=== PATIENT | male | born 1945 | race Caucasian/White ===

== ENCOUNTER 2016-09-30 07:54 | Day surgery (SDC) | payer OTHER ==
[2016-09-30] MEDS ORDERED: Morphine INJ* 4 MG/ML 1 ML SYRINGE IV ONE ×2 (08:25→09:24)
[2016-09-30] MEDS ORDERED: Ondansetron INJ* 2 MG/ML VIAL IV ONE (08:25)
[2016-09-30] MEDS ORDERED: NS 0.9% 1000 ML* 1,000 ML IV SCH (08:45)
[2016-09-30] MEDS ORDERED: Buffered Lidocaine 0.9% SYRIN* 5 ML/SYR SYRINGE INTRADERM ONE (10:04)
[2016-09-30] MEDS ORDERED: Famotidine IV* 10 MG/ML 2 ML (20 mg) IV ONE (10:04)
[2016-09-30] MEDS ORDERED: Morphine INJ* 2 MG/ML 1 ML SYRINGE IV PRN (10:05)
[2016-09-30] MEDS ORDERED: fentaNYL* 50 MCG/ML 2 ML VIAL (100 MCG VIAL) IV PRN (10:05)
[2016-09-30] MEDS ORDERED: oxyCODONE/Acetamin 5/325 MG* TAB PO PRN (10:05)
[2016-09-30] MEDS ORDERED: PROCHLORPERAZINE INJ 5 MG/ML 2 ML VIAL IV PRN (10:05)
--- NOTE | 2016-09-30 10:21 | HP ---
CC: Dr. Arnold Kennedy * DATE OF ADMISSION: 09/30/16 CHIEF COMPLAINT: Abdominal pain. HISTORY OF PRESENT ILLNESS: The patient is a 71-year-old male transferred over from [facility]. He was ambulatory to the ER with about 6 hours of generalized abdominal pain with some dry heaves. He did not throw up at all , but he felt like maybe he needed to. The pain was sort of generalized. He has a hard time pinpointing exactly where it is. He's had no fever, no chills. No accident, injury or trauma. PAST MEDICAL HISTORY: Significant for right inguinal hernia repair 40 years ago or more. He also has known polycystic kidney disease. He still urinates normally. MEDICATIONS: He denies regular medication. ALLERGIES: He denies allergy to medications. FAMILY HISTORY: Benign. There are no bleeding tendencies or anesthesia reactions. SOCIAL HISTORY: He's approximately a pack-a-day smoker. He's not an alcohol drinker. 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 He has no trouble going up and down stairs or up and down ladders. He does not tend to get winded. He is here with his today. REVIEW OF SYSTEMS: A multi-system review is benign. No chest pain, heart pain , angina pain or the like. No chronic bronchitis, emphysema, or chronic cough or congestion. No recent upper respiratory infection. He has no chronic GI history, and no urinary symptoms. He has no neuromuscular or psych issues. He' s never had easy bleeding or clotting problems. PHYSICAL EXAMINATION GENERAL: On exam, he's a well-developed, well-nourished male, consistent with stated age. Skin is warm and well perfused. He's not diaphoretic; he's not jaundiced. VITAL SIGNS: Please see the admission vital signs in the computer. HEAD AND NECK: Unremarkable. Neck without any adenopathy. LUNGS: Clear bilaterally without adequate aeration. HEART: Regular without abnormal sounds. He's reported from the [facility] to have a grade I diastolic murmur; I don't appreciate that at all. ABDOMINAL EXAM: Soft, mild diffuse tenderness, no rebound, no guarding. He has a tender palpable right inguinal hernia which is actually quite tender and not reducible. EXTREMITIES: Well perfused and without edema. LABORATORY STUDIES: Show normal electrolytes, normal CBC. CT scan shows evidence of bowel obstruction with a right inguinal hernia. The official report from [facility] is that there are bilateral inguinal hernias, but I do not palpate a left inguinal hernia on exam, nor do I believe there's truly a left inguinal hernia on the CT scan. I've gone over these images with Dr. Quintero who concurs. IMPRESSION: A 71-year-old male with incarcerated right inguinal hernia with recurrence and with bowel obstruction. I discussed this with him and his , and I recommend repair of his right inguinal hernia with mesh to relieve his bowel obstruction. They understand that if there is gangrene of the bowel, that it is possible that he will need a bowel resection. It is also possible that he will need conversion to laparotomy. We've gone over all these issues. All their questions have been answered, and they agree to proceed in the fashion outlined. [id number]/[facility] #: [id number] MTDD
[2016-09-30] MEDS ORDERED: Famotidine IV* 10 MG/ML 2 ML (20 mg) ONE (10:25)
[2016-09-30] MEDS ORDERED: Morphine INJ* 10 MG/ML 1 ML SYRINGE ONE (10:48)
[2016-09-30] MEDS ORDERED: PROCHLORPERAZINE INJ 5 MG/ML 2 ML VIAL ONE (10:48)
[2016-09-30] MEDS ORDERED: ceFAZolin 2 GM PREMIX(*) 2 GM/50 ML BAG IVPB ONE ×2 (11:49→11:52)
[2016-09-30] MEDS ORDERED: fentaNYL* 50 MCG/ML 2 ML VIAL (100 MCG VIAL) ONE (11:50)
[2016-09-30] MEDS ORDERED: KETAMINE HCL* 50 MG/ML 10 ML VIAL ONE (11:50)
[2016-09-30] MEDS ORDERED: Midazolam* 1 MG/ML 2 ML VIAL (2 MG) ONE (11:51)
[2016-09-30] MEDS ORDERED: Bupivacaine 0.5% W/EPI SDV* 10 ML VIAL INJ ONE ×2 (11:56→11:57)
[2016-09-30] MEDS ORDERED: Lidocaine 1% INJ* 10 MG/ML 30 ML SDV ONE (11:57)
[2016-09-30] MEDS ORDERED: Lidocaine 2% PF * 5 ML VIAL ONE (12:33)
[2016-09-30] MEDS ORDERED: Propofol* 10 MG/ML 20 ML BTL IV PUSH ONE (12:33)
[2016-09-30] MEDS ORDERED: Dexamethasone IV* 4 MG/ML 1 ML (4 MG) ONE (12:33)
[2016-09-30] MEDS ORDERED: Glycopyrrolate IV* 0.2 MG/ML 1 ML VIAL ONE (12:33)
[2016-09-30] MEDS ORDERED: Neostigmine Methylsulfate* 2 MG/2 ML SYRINGE ONE (12:33)
[2016-09-30] MEDS ORDERED: Ondansetron INJ* 2 MG/ML VIAL ONE (12:33)
[2016-09-30] MEDS ORDERED: EPHEDrine (Pressors)* 50 MG/ML VIAL ONE (12:59)
[2016-09-30 15:23] VITALS: BP 129/70
--- NOTE | 2016-09-30 15:49 | ED ---
Adriane Vizcaino Edward, scribed for Isael Ma MD on 09/30/16 at 0835 . Abdominal Pain/Male - HPI Summary HPI Summary: 71 y/o male presents to ED c/o diffuse ABD pain. Pain started at 21:00 last night and was rated at a 7/10 on arrival. Denies pain in testicles. PMHx groin strain, chronic back problems. SHx hernia repair in 1995. - History of Current Complaint Chief Complaint: EDAbdPain Stated Complaint: ABD PAIN Time Seen by Provider: 09/30/16 08:24 Hx Obtained From: Patient Onset/Duration: Lasting Hours - Since 21:00 yesterday, Still Present Timing: Constant Severity Initially: Moderate Severity Currently: Moderate Pain Intensity: 7 Pain Scale Used: 0-10 Numeric Location: Diffuse - Diffuse abdominal pain - Allergies/Home Medications Allergies/Adverse Reactions: Allergies Allergy/AdvReac Type Severity Reaction Status Date / Time No Known Allergies Allergy Verified 09/30/16 08:06 PMH/Surg Hx/FS Hx/Imm Hx Previously Healthy: Yes Musculoskeletal History: Reports: Other Musculoskeletal History - Groin strain, chronic back problems - Surgical History Surgery Procedure, Year, and Place: Hernia repair (1995) Infectious Disease History: No Infectious Disease History: Denies: Traveled Outside the [place] in Last 30 Days - Family History Known Family History: Positive: Cardiac Disease - Father of CHF at 83, Diabetes - Son - Social History Alcohol Use: None Substance Use Type: Reports: Prescribed Substance Use Comment - Amount & Last Used: for back pain Smoking Status (MU): Heavy Every Day Tobacco Smoker Review of Systems Constitutional: Negative Eyes: Negative ENT: Negative Cardiovascular: Negative Respiratory: Negative Positive: Abdominal Pain - Diffuse Genitourinary: Negative Positive: other - No pain in testicles Musculoskeletal: Negative Skin: Negative Neurological: Negative Psychological: Normal All Other Systems Reviewed And Are Negative: Yes Physical Exam Triage Information Reviewed: Yes Vital Signs On Initial Exam: Initial Vitals Temp Pulse Resp BP Pulse Ox 97.6 F 51 18 156/75 98 09/30/16 07:59 09/30/16 07:59 09/30/16 07:59 09/30/16 07:59 09/30/16 07:59 Vital Signs Reviewed: Yes Appearance: Positive: Well-Appearing, Well-Nourished, Pain Distress - Moderate pain distress Skin: Positive: Warm, Skin Color Reflects Adequate Perfusion, Dry Head/Face: Positive: Normal Head/Face Inspection Eyes: Positive: Normal, EOMI, ART ENT: Positive: Normal ENT inspection Neck: Positive: Supple, Nontender Respiratory/Lung Sounds: Positive: Clear to Auscultation, Breath Sounds Present Cardiovascular: Positive: RRR Abdomen Description: Positive: Soft, Other: - Diffuse ABD tenderness. Bowel Sounds: Positive: Hypoactive Musculoskeletal: Positive: Normal, Strength/ROM Intact, Other - RIght inguinal or femoral sweeling, tender to palpation Neurological: Positive: Normal, Sensory/Motor Intact, Alert, Oriented to Person Place, Time Psychiatric: Positive: Normal, Affect/Mood Appropriate - Jose Coma Scale Coma Scale Total: 15 Diagnostics - Vital Signs Vital Signs Temp Pulse Resp BP Pulse Ox 09/30/16 08:31 18 09/30/16 08:18 54 17 92 09/30/16 08:16 51 14 93 09/30/16 08:01 97.6 F 51 18 156/75 98 09/30/16 07:59 97.6 F 51 18 156/75 98 - Laboratory Lab Statement: Any lab studies that have been ordered have been reviewed, and results considered in the medical decision making process. Abdominal Pain Fem Course/Dx - Course Course Of Treatment: NO CRITICAL CARE TIME. DISCUSSED WITH DR CARDONA; HE WILL TAKE TO THE OR STABLE. - Diagnoses Provider Diagnoses: Incarcerated hernia, SBO (small bowel obstruction) Discharge - Discharge Plan Condition: Stable Disposition: ADMITTED TO [facility] documentation as recorded by the Adriane black Edward accurately reflects the service I personally performed and the decisions made by , Isael Ma MD.
--- NOTE | 2016-10-01 09:55 | OP ---
CC: Dr. Gerry Garvey; Dr. Arnold Kennedy OPERATIVE REPORT: DATE OF OPERATION/DICTATION: 09/30/16 DATE OF : 41 SURGEON: Gerry Garvey MD. CLOTH WEAVER: Asia Barker NP. ANESTHESIOLOGIST: Dr. Arroyo. ANESTHESIA: General anesthetic, local infiltration. PRE-OP DIAGNOSIS: Incarcerated recurrent right inguinal hernia. POST-OP DIAGNOSIS: Incarcerated right femoral hernia with small bowel obstruction. OPERATIVE PROCEDURE: Open repair of right femoral hernia with mesh. DESCRIPTION OF PROCEDURE: The patient was supine on the operative table. After adequate general an esthetic, compression stockings, Kayla Hugger warmer, and intravenous antibiotics; the right groin wa s clipped and prepped with antiseptic, draped in a sterile fashion. Local infiltrative anesthesia w as administered and the previous incision was re-entered. In going through the scar tissue, a littl e bleeding was identified and this was suture ligated and ultimately was identified to be from the s permatic cord, which had been translocated anterior to the external oblique fascia at the time of hi s previous hernia repair. The hernia was palpable down into the femoral canal and it was decided th at this would be repaired through a Bradly's ligament approach. The external oblique was opened and the transverse abdominis was opened and the hernia was identified and extending down into the femor al canal. The hernia sac was opened and the bowel was milked out of the sac. It was moderately dark purple but looked perfectly viable. It was kept under a moistened gauze for a few minutes and it p inked up nicely. It was then returned to the peritoneal cavity. The hernia sac was reduced from th e femoral canal. Excess sac was amputated and sent for pathologic evaluation. The peritoneum was t hen suture ligated and closed with 2-0 Vicryl. A piece of mesh approximately 8 x 10 cm was placed i nto the preperitoneal space. It was sutured underneath the tubercle and at Bradly's ligament and th en up under the transversus abdominis. This created an excellent closure of the space and the trans versus abdominis was then sutured down to the inguinal ligament and the external oblique aponeurosis was closed over top with 2-0 Polysorb. Local anesthetic was administered. Zeus's was closed wit h 3-0 Polysorb and the skin with 4-0 Surgipro followed by sterile dressing. He tolerated the proced ure well, was brought to Recovery in good condition. There were no complications. No drains. Path ologic specimen was hernia sac. Sponge and instrument counts were correct. Estimated blood loss le ss than 30 mL. [id number]/[facility] #: [id number]
== END 2016-09-30 15:29 | disposition home or self-care (01) ==
LOC: ED 07:54 → OR 10:36
PROVIDERS: ATTEND Surgery
PROC: 0YU50JZ Supplement Right Inguinal Region with Synthetic Substitute, Open Approach (ICD-10-PCS; principal; 2016-09-30 12:45)
DX: K40.91 Unilateral inguinal hernia, without obstruction or gangrene, recurrent (principal); F17.210 Nicotine dependence, cigarettes, uncomplicated
CPT/HCPCS: 88302; 96374; 96375; 99283; C1781; J0690; J0780; J1100; J2001; J2250; J2270; J2405; J2704; J3010